=== PATIENT | male | born 1980 | race Hispanic/Latino ===

== ENCOUNTER 2017-10-08 07:18 | Emergency (ER) | payer OTHER ==
[~2017-10-08] VITALS: Ht 167.6 cm; Wt 68.0 kg
--- NOTE | 2017-10-08 07:32 | ER.PDOC ---
General Chief Complaint: Requesting Medical Care Stated Complaint: MALE Time seen by MD: 07:33 Source: patient Exam Limitations: no limitations History of Present Illness Timing/Duration: 4-6 hours Severity/Quality: severe Radiation: flank Associated Symptoms: nausea/vomiting Exacerbated by: nothing Relieved By: nothing Allergies: Coded Allergies: No Known Allergies (Unverified , 10/08/17) Past Medical History Medical History: no pertinent history Surgical History: no surgical history All Other Systems: Reviewed and Negative Physical Exam General Appearance: Anxious HEENT: PERRL/EOMI, Normal ENT Inspection, TMs Normal, Pharynx Normal Neck: Non-Tender, Full Range of Motion, Supple, Normal Inspection Respiratory: chest non-tender, lungs clear, normal breath sounds, no respiratory distress, no accessory muscle use Cardiovascular: Normal Peripheral Pulses, Regular Rate, Rhythm, No Edema, No Gallop, No JVD, No Murmur Gastrointestinal: Tenderness Back: Normal Inspection, No Vertebral Tenderness, CVA Tenderness (L) Extremities: Normal Range of Motion, Non-Tender, Normal Inspection, No Pedal Edema, No Calf Tenderness, Normal Capillary Refill, Pelvis Stable Neurologic/Psychiatric: 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
[2017-10-08 07:40] VITALS: BP 180/90
[2017-10-08] MEDS ORDERED: TORADOL ONE (07:42)
[2017-10-08 07:43] LABS: BASOPHIL # 0.1 10^3/uL (0.0-0.1); BASOPHIL % 0.7 % (0.0-0.2); EOSINOPHIL # 0.1 10^3/uL (0.0-0.2); EOSINOPHIL % 0.8 % (0.0-5.0); LYMPHOCYTES # 2.3 10^3/uL (1.0-4.8); MEAN CELL HGB 31.1 pg (26-34); MEAN CELL HGB CONCENTRATION 36.5 g/dL (33-37); MEAN CORP VOLUME 85.2 fL (78-100); MEAN PLATELET VOLUME 10.2 fL (7.8-11.0); MONOCYTES # 0.5 10^3/uL (0.3-0.8); MONOCYTES % 6.5 % (5.0-12.0); NEUTROPHIL # 4.3 10^3/uL (1.8-7.7); NEUTROPHILS % 59.7 % (41.0-85.0); RED CELL DISTRIBUTION WIDTH 12.9 % (11.5-14.5); WHITE BLOOD CELL 7.3 10^3/uL (4.5-11.0)
[2017-10-08] MEDS ORDERED: MORPHINE SULFATE ONE (07:43)
[2017-10-08 07:59] LABS: CALCIUM 8.9 mg/dL (8.4-10.5); CARBON DIOXIDE 22.7 mmol/L (20.0-32)
[2017-10-08] MEDS ORDERED: TORADOL IM ONE (08:00)
[2017-10-08] MEDS ORDERED: MORPHINE SULFATE IM PRN (08:00)
--- NOTE | 2017-10-08 08:11 | DIREP ---
PROCEDURE:CT ABD/PELVIS WITHOUT CONTRAST TECHNIQUE:No oral contrast was given. Axial cuts were obtained from the dome of the diaphragm to the ischial tuberosities. No intravenous contrast was given. The images were viewed at lung, liver, bone, and soft tissue settings. Sagittal and coronal reconstructions are provided. COMPARISON:None. INDICATIONS:L FLANK PAIN, Renal stone FINDINGS: LOWER CHEST:The lung bases are clear. LIVER:Normal. BILIARY:Normal. PANCREAS:Normal. SPLEEN:Normal. KIDNEYS:Mild left-sided hydronephrosis and hydroureter. There is a 2 mm stone in the lumen of the urinary bladder, adjacent to the left UVJ. ADRENALS:Normal. AORTA/VASCULAR:Normal. RETROPERITONEUM:Normal. BOWEL/MESENTERY:Bowel evaluation is limited by the lack of oral contrast. No evidence of bowel obstruction, free intraperitoneal air, or abscess. The appendix is normal. ABDOMINAL WALL:Normal. PELVIS:Normal. BONES:Bilateral pars defects noted at L5. Grade 1 anterolisthesis of L5 on S1 OTHER: The absence of IV contrast limits evaluation of the soft tissues. CONCLUSION:There is a small 2 mm stone in the lumen of the urinary bladder, likely recently passed from the left where there is mild residual obstructive uropathy Dictated by: Nadya Barrera M.D. on 10/08/2017 at 08:08 AM
[2017-10-08] MEDS ORDERED: NORCO 10MG PO ONE (08:35)
[2017-10-08] MEDS ORDERED: ZOFRAN ODT ONE (08:35)
[2017-10-08] MEDS ORDERED: ZOFRAN ODT SL STA (08:35)
[2017-10-08] MEDS ORDERED: NORCO 10MG PO STA (08:35)
[2017-10-08 08:40] VITALS: BP 129/71
[2017-10-08 08:41] VITALS: BP 180/90
== END 2017-10-08 08:40 | disposition home or self-care (01) ==
LOC: ER 07:18
DX: N23 Unspecified renal colic (principal); R11.2 Nausea with vomiting, unspecified; R79.1 Abnormal coagulation profile
CPT/HCPCS: 36415; 74176; 80053; 82150; 83690; 85025; 85610; 85730; 86677; 96372 ×2; 99285; J1885; J2270; Q0162